=== PATIENT | male | born 1975 | race Caucasian/White ===

== ENCOUNTER 2022-04-04 18:19 | Emergency (ER) | payer OTHER ==
[~2022-04-04] VITALS: Ht 180.3 cm; Wt 100.0 kg
[2022-04-04 18:28] VITALS: TEMP 98.5
[2022-04-04 19:18] VITALS: BP 144/92; PULSE 80
== END 2022-04-04 19:19 | disposition home or self-care (01) ==
LOC: COL.ER 18:19
DX: G43.909 Migraine, unspecified, not intractable, without status migrainosus (principal); Z28.310 Unvaccinated for COVID-19